=== PATIENT | female | born 1985 | race Caucasian/White ===

== ENCOUNTER → 2020-07-20 09:22 | Outpatient (BNVA) | payer SELFPAY | PROVIDERS: Visit Provider Internal Medicine Cardiovascular Disease | DX: Z76.89 Persons encountering health services in other specified circumstances (principal) ==

== ENCOUNTER → 2020-07-21 | Outpatient (REF) | payer OTHER, SELFPAY ==
--- NOTE | 2020-07-21 | ECG_ITS ---
Hook-up date: 2020-07-20 09:54:00 Duration: 26:34:00 Test Indications: PALPITATIONS Medications: 550079 QRS complexes 1815 Ventricular ectopics which represent 1 % of total QRS comp. 6 Supraventricular ectopics which represent <1 % of total QRS comp. * Paced QRS complexs which represent % of total QRS comp. VENTRICULAR ECTOPY 1247 Isolated 3 Bigeminal Cycles 275 Couplets 6 Runs 18 Beats in Runs 3 Beats LONGEST at 157 BPM at 16:24:04 2020-07-20 3 Beats FASTEST at 267 BPM at 18:23:37 2020-07-20 SUPRAVENTRICULAR ECTOPY 6 Isolated 0 Couplets 0 Runs 0 Beats in Runs * Beats LONGEST at * BPM at :: -- * Beats FASTEST at * BPM at :: -- HEART RATES 56 MIN at 20:01:08 2020-07-20 79 AVG 157 MAX at 14:42:31 2020-07-20 LONGEST RR 1.0720 secs at 06:20:50 2020-07-21 S-T LEVELS Channel 1 - 128 mm at 09:54:00 2020-07-20 - 128 mm at 09:54:00 2020-07-20 Channel 2 - 128 mm at 09:54:00 2020-07-20 - 128 mm at 09:54:00 2020-07-20 Channel 3 - 128 mm at 02:91:31 -- - 128 mm at 02:91:31 Referred By: Jaspal Rosales Overread By:
== END ==
LOC: HO.CARD
PROVIDERS: Visit Provider Internal Medicine Cardiovascular Disease
DX: R00.2 Palpitations (principal)
CPT/HCPCS: 93226

== ENCOUNTER → 2021-01-25 13:19 | Outpatient (BNVA) | payer OTHER, SELFPAY | PROVIDERS: Visit Provider Internal Medicine Cardiovascular Disease | DX: R00.2 Palpitations (principal) | CPT/HCPCS: 93005 ==

== ENCOUNTER 2021-08-07 15:00 | Outpatient (REF) | payer BC, SELFPAY ==
[2021-08-07 15:04] LABS: MANUAL DIFF FLAG NO
[2021-08-07 15:11] LABS: Basophils Percent Auto 0.8 % (0-2); Eosinophils Absolute Auto 0.2 X10*3/uL (0.0-0.4); Hematocrit 37.1 % (37-47); Hemoglobin 12.2 g/dl (12.0-16.0); Imm Gran Abs Auto 0.01 X10*3/uL (0.00-0.03); Imm Gran Pct Auto 0.2 % (0.0-0.4); Lymphocytes Absolute Auto 1.6 X10*3/uL (1.2-4.9); Lymphocytes Percent Auto 31.8 % (20-40); Mean Corpuscular HGB Conc 32.9 g/dl (31.0-35.0); Mean Corpuscular Hemoglobin 29.6 pg (27.0-33.0); Mean Platelet Volume 10.6 fL (9.4-12.3); Monocytes Absolute Auto 0.5 X10*3/uL (0.1-1.2); Monocytes Percent Auto 9.7 % (2-11); Neutrophils Absolute Auto 2.6 X10*3/uL (2.0-8.3); Neutrophils Percent Auto 53.5 % (45-73); Platelet Count 328 X10*3/uL (160-400); Red Blood Count 4.12 X10*6/uL (4.20-5.50); Red Cell Distribution Width 13.5 % (11.0-16.0); White Blood Count 4.9 X10*3/uL (4.8-10.8)
[2021-08-07 15:13] LABS: Appearance Urine CLEAR; Color Urine YELLOW; Glucose Urine UA NEG (NEG); Leukocyte Esterase Urine 1+ (NEG); Nitrite Urine NEG (NEG); PH 6.5 (5.0-8.0); Specific Gravity - Urine <= 1.005 (1.005-1.025); Urine Blood NEG (NEG); Urine Ketones NEG (NEG); Urine Protein NEG (NEG-TRACE)
[2021-08-07 15:37] LABS: RBC Urine 0-2 /HPF (0); Squamous Epithelial Cell Urine TRACE /LPF
[2021-08-07 15:38] LABS: Bacteria Urine 1+ /LPF
[2021-08-07 15:49] LABS: Alanine Aminotransferase 13 U/L (0-31); Albumin Level 4.5 g/dL (3.5-5.0); Alkaline Phosphatase 57 U/L (39-117); Anion Gap 14 (12-20); Aspartate Amino Transferase 16 U/L (5-31); Bilirubin Total 0.5 mg/dL (0.0-1.0); Blood Urea Nitrogen 9 mg/dL (9-16); Calcium 9.4 mg/dL (8.4-10.2); Carbon Dioxide 22 mmol/L (22-29); Chloride 106 mmol/L (96-108); Cholesterol 203 mg/dL; Estimated Glomerular Filt Rate > 60; Glucose Fasting 98 mg/dL (60-99); HDL Cholesterol 73 mg/dL; LDL Cholesterol Calculated 109 mg/dl; Sodium 138 mmol/L (135-145); Total Protein 7.4 g/dL (6.5-8.0); Triglycerides 105 mg/dL
== END 2021-08-07 15:01 | disposition home or self-care (01) ==
LOC: HO.LNP 15:00
PROVIDERS: Visit Provider Internal Medicine
DX: Z00.00 Encounter for general adult medical examination without abnormal findings (principal); F41.9 Anxiety disorder, unspecified; K59.00 Constipation, unspecified; R19.8 Other specified symptoms and signs involving the digestive system and abdomen
CPT/HCPCS: 80053; 80061; 81001; 85025

== ENCOUNTER 2021-09-06 09:18 | Outpatient (REF) | payer BC, SELFPAY ==
--- NOTE | ~2021-09-06 | US_ITS ---
EXAMINATION: US PELVIS CLINICAL INFORMATION: Abdominal fullness COMPARISON: None TECHNIQUE: Ultrasound of the pelvis is performed using both transabdominal and transvaginal transducers along with Doppler. Transvaginal imaging is performed due to inadequate visualization transabdominally. FINDINGS: The uterus is anteverted and measures 9.2 x 2.8 x 4.8 cm in dimension. No focal uterine lesion is seen. Endometrial thickness is upper normal in size measuring 1.6 cm. There is a nabothian cyst in the cervix. There is a small cyst posterior to the uterus measuring 1.1 x 1.1 x 1 cm. This was not seen on prior exam. The ovaries are normal-appearing. The right ovary measures 1.9 x 2.4 x 2.2 cm and the left ovary measures 3.9 x 2.2 x 2.8 cm. There is a small amount of fluid in the pelvis. US/US pelvic and transvaginal IMPRESSION: 1 cm cyst in the pelvis posterior to the uterus. This was not seen on August 2017 exam. Otherwise unremarkable exam.
--- NOTE | ~2021-09-06 | US_ITS ---
EXAMINATION: US ABDOMEN COMPLETE CLINICAL INFORMATION: Abdominal fullness. COMPARISON: Ultrasound abdomen 05/27/2017. TECHNIQUE: Real-time imaging of the abdominal viscera. FINDINGS: PANCREAS: Normal. ABDOMINAL AORTA: The proximal, mid, and distal segments are normal in caliber. INFERIOR VENA CAVA: Visualized portions are normal. LIVER: Normal. The liver is normal in size. The liver contour is normal. Parenchymal echogenicity is normal. No focal hepatic lesion. There is no intrahepatic biliary duct dilatation seen. GALLBLADDER: Normal The gallbladder is physiologically distended without evidence of stones, sludge, polyps, wall thickening or pericholecystic fluid. COMMON BILE DUCT: Normal in caliber measuring 0.3 cm in diameter. RIGHT KIDNEY: Normal No hydronephrosis. No renal calculi or focal parenchymal lesions. The kidney measures 9.2 cm in maximum dimension. LEFT KIDNEY: Normal No hydronephrosis. No renal calculi or focal parenchymal lesions. The kidney measures 9.9 cm in maximum dimension. SPLEEN: Normal. The spleen measures 7.5 cm in maximum dimension. FREE FLUID: None. US/US abdomen complete IMPRESSION: Normal pelvic ultrasound.
== END 2021-09-06 09:19 | disposition home or self-care (01) ==
LOC: HO.US 09:18
PROVIDERS: PCP Internal Medicine; Visit Provider Internal Medicine
DX: K59.00 Constipation, unspecified (principal); R19.8 Other specified symptoms and signs involving the digestive system and abdomen
CPT/HCPCS: 76700; 76830; 76856

== ENCOUNTER 2021-09-07 19:02 | Emergency (ER) | payer BC, SELFPAY ==
[2021-09-07 19:29] VITALS: BP 129/71; PULSE 90; RESP 16; TEMP 36.4; O2SAT 100; BMI 19.5
--- NOTE | 2021-09-07 20:33 | ED.ANIMALBIT ---
HPI - Animal Bite General Chief Complaint: Animal Bite Stated Complaint: tick in your belly button Time Seen by Provider: 09/07/21 20:30 History of Present Illness HPI narrative: 36-year-old female complaining of having a tick in her abdomen. No specific complaint no systemic complaints. Patient is home. No fever no chills Related Data Home Medications Medication Instructions Recorded Confirmed sertraline 25 mg tablet 25 mg PO DAILY 01/25/21 01/25/21 Previous Rx's Medication Instructions Recorded doxycycline hyclate 100 mg capsule 200 mg PO ONCE #2 cap 09/07/21 Allergies Allergy/AdvReac Type Severity Reaction Status Date / Time Erythromycin Allergy Unknown hives Unverified 03/01/20 00:00 Review of Systems Review of Systems: no fever no chills no systemic complaints Yes all other systems are reviewed and are negative [facility] Past Medical History Attestation statement: The following information was validated with the patient. Medical History Palpitation Palpitations Family History Family History (Updated 01/25/21 @ 13:47 by JOSE JUAN Hale) Mother HTN (hypertension) Social History Social History (Updated 01/25/21 @ 13:47 by JOSE JUAN Hale) Alcohol intake: current Patient : No Physical Exam Vital Signs: Vital Signs: Last Vital Signs Temp 97.6 F 09/07/21 19:29 Pulse 90 09/07/21 19:29 Resp 16 09/07/21 19:29 BP 129/71 09/07/21 19:29 Pulse Ox 100 09/07/21 19:29 Body Mass Index 19.5 Appearance: Alert. Oriented X3. No acute distress. Eyes: Pupils equal, round and reactive to light. ENT: Pharynx normal. Neck: Normal inspection. CVS: regular Respiratory: No respiratory distress. Abdomen: Soft and nontender. No rigidity. No distention. good BS x4 Skin: Skin warm and dry. Normal skin color. Normal skin turgor. Extremities: No lower extremity edema. Neurovascular intact to all extremities. No Lacerations. No Rash Neuro: No motor deficit. No sensory deficit. Moving all extermities. No slurred speech positive take imbedded in patient's umbilicus. MDM - Animal Bite MDM Narrative Medical decision making narrative: Take was removed using direct traction. Will give patient 1 dose of doxycycline patient claims she is not she is well-appearing in stable condition with discharge home. Discharge Plan Discharge Clinical Impression: Tick bite Patient Disposition: Home, Self-Care Instructions: Tick Bite (ED) Prescriptions: New doxycycline hyclate 100 mg capsule 200 mg PO ONCE Qty: 2 RF: 0 No Action sertraline 25 mg tablet 25 mg PO DAILY RF: 0 Referrals: Willard Estevez MD [Primary Care Provider] - 2 days
[2021-09-07 20:50] VITALS: BP 102/71; PULSE 83; RESP 18; TEMP 36.7; O2SAT 98
== END 2021-09-07 20:51 | disposition home or self-care (01) ==
LOC: HO.ED 20:35
PROVIDERS: Emergency Provider Emergency Medicine Emergency Medical Services; PCP Internal Medicine
DX: S30.861A Insect bite (nonvenomous) of abdominal wall, initial encounter (principal); W57.XXXA Bitten or stung by nonvenomous insect and other nonvenomous arthropods, initial encounter; Y93.9 Activity, unspecified; Y92.9 Unspecified place or not applicable; Y99.9 Unspecified external cause status
CPT/HCPCS: 99283

== ENCOUNTER → 2022-01-31 14:45 | Outpatient (BNVA) | payer BC, SELFPAY | PROVIDERS: PCP Internal Medicine; Referring Provider Internal Medicine; Visit Provider Internal Medicine Cardiovascular Disease | DX: R00.2 Palpitations (principal) | CPT/HCPCS: 93005 ==

== ENCOUNTER 2022-04-30 13:55 | Outpatient (REF) | payer BC, SELFPAY ==
--- NOTE | ~2022-04-30 | US_ITS ---
EXAMINATION:US pelvic and transvaginal CLINICAL INFORMATION: Reason for Exam ABDOMINAL FULLNESS COMPARISON: Prior ultrasound 2020 LMP: One month FINDINGS: UTERUS: The uterus is anteverted. Size: 8.4 x 3.5 x 5.7 cm cm. Uterine mass: Subserosal uterine mass likely fibroid measures 1.7 x 1.3 x 1.7 cm, slightly enlarged compared to 1.1 cm on prior ultrasound. Cervix: Grossly unremarkable. Endometrium: Hypertrophic endometrium, No ultrasound evidence of endometrial lesion. endometrial thickness measures 1.4 cm ADNEXA: Normal Right ovary: Normal in size. Left ovary: Normal in size. Doppler exam: Normal Doppler flow identified in both ovaries. FREE FLUID: Trace amount of free fluid. OTHER FINDINGS: None US/US pelvic and transvaginal IMPRESSION: Slightly enlarged subserosal uterine mass likely fibroid measure up to 1.7 cm compared to 1.1 cm in prior ultrasound.
== END 2022-04-30 13:56 | disposition home or self-care (01) ==
LOC: HO.US 13:55
PROVIDERS: Visit Provider Internal Medicine
DX: R19.8 Other specified symptoms and signs involving the digestive system and abdomen (principal)
CPT/HCPCS: 76830; 76856

== ENCOUNTER 2023-03-25 16:21 | Outpatient (REF) | payer BC, SELFPAY ==
[2023-03-27 03:49] LABS: A. Phagocytphilium DNA,RT-PCR NOT DETECTED (NOT DETECTED); Babesia Microti DNA, RT-PCR NOT DETECTED (NOT DETECTED); Borrelia Miyamotoi,DNA RT-PCR NOT DETECTED (NOT DETECTED); E.Chaffeensis DNA RT-PCR NOT DETECTED (NOT DETECTED); Lyme(Borrelia ssp)DNA RT-PCR NOT DETECTED (NOT DETECTED)
== END 2023-03-25 16:22 | disposition home or self-care (01) ==
LOC: HO.LAB 16:21
PROVIDERS: PCP Internal Medicine; Visit Provider Internal Medicine
DX: A69.20 Lyme disease, unspecified (principal); Z20.2 Contact with and (suspected) exposure to infections with a predominantly sexual mode of transmission
CPT/HCPCS: 36415; 87798; 87801

== ENCOUNTER 2023-09-10 07:02 | Emergency (ER) | payer BC, SELFPAY ==
[2023-09-10 07:13] VITALS: BP 120/72; PULSE 97; RESP 16; TEMP 36.6; O2SAT 100; BMI 20.4
--- NOTE | 2023-09-10 08:34 | PC.NURSE ---
Patient admits to getting bit by her own dog today while attempting to take away food. Dog is up to date with all vaccinations. Small area noted to thumb. Not bleeding or open at this time. Waiting for provider evaluation.
--- NOTE | 2023-09-10 10:02 | ED.GENADULT ---
HPI - General Adult General Chief complaint: Animal Bite Stated complaint: Poss Rabies Exposure Bit by Dog 09/08/23 Time Seen by Provider: 09/10/23 09:26 Source: patient Mode of arrival: ambulatory Limitations: no limitations History of Present Illness HPI narrative: 28-year-old female presents to the ED for left thumb bite by her dog while trying give him chicken was vaccinated for rabies. Patient denies any swelling, redness, pus discharge, foul odor, or stiffness from left thumb. Patient came to ED to be evaluated because her dog went near a Alexis couple of days ago so she came to the ED to see if she should be treated for rabies. Patient denies once again Alexis biting her dog, the alexis was . Her dog does not have any bites on her body. Also her dog did not bite into the Alexis. Patient states her dog is acting normally Related Data Home Medications Medication Instructions Recorded Confirmed sertraline 25 mg tablet 25 mg PO DAILY 01/25/21 01/31/22 Previous Rx's Medication Instructions Recorded amoxicillin 400 mg/5 mL oral 500 mg (6.25 mL) PO BID 7 days 09/10/23 suspension #87.5 mL Allergies Allergy/AdvReac Type Severity Reaction Status Date / Time erythromycin base Allergy Unknown Hives Verified 09/10/23 07:13 Review of Systems Review of Systems: left thumb dog bite Yes all other systems are reviewed and are negative [facility] Past Medical History Medical History (Updated 09/10/23 @ 10:19 by SARAH Doan) Palpitations Palpitation Surgical History (Updated 01/31/22 @ 14:57 by JOSE JUAN Hale) No pertinent past surgical history Family History Family History (Updated 01/31/22 @ 14:57 by JOSE JUAN Hale) Mother HTN (hypertension) Father No problems noted. Social History (Updated 01/31/22 @ 14:57 by JOSE JUAN Hale) Alcohol intake: current Alcohol intake frequency: holidays/special occasions only Patient Tobacco Use Status: Never used Tobacco Advance Directives: No Advance Directives Information Provided: No Physical Exam ED Vital Signs: Vital Signs - 24 hr 09/10/23 07:13 Temperature 97.9 F Pulse Rate 97 Respiratory Rate 16 Blood Pressure 120/72 Pulse Oximetry 100 Oxygen Delivery Method Room Air BMI result Body Mass Index 20.4 Const General: cooperative, healthy appearing, comfortable, no acute distress, well developed, alert, awake and Physically active Orientation/consciousness: oriented to person, oriented to place, oriented to time and patient oriented x3 [facility] Head: Yes normal to inspection, Yes No palpable skull fracture present, Yes normocephalic and Yes atraumatic Eyes General: appearance normal, both eyes and all related structures Neck Neck: Yes normal visual inspection, Yes full ROM, Yes no lymphadenopathy, Yes no meningeal signs, Yes trachea midline, Yes supple, No anterior neck swelling and No tender Chest Chest palpation & inspection: normal inspection of the chest and normal palpation of entire chest wall Resp Effort & Inspection: normal respiratory effort and able to speak in complete sentences Auscultation: clear to auscultation bilaterally Cardio Jugular venous distension: no JVD Heart sounds: S1 normal heart sound present and S2 normal heart sound present GI Inspection: Yes normal to inspection and No abdominal wall ecchymosis Palpation (GI): Soft to palpation, not firm, nontender, no guarding and not rigid General: No CVA tenderness and Yes no CVA tenderness Back/Spine/Pelvis Back: no CVA tenderness, No CVA tenderness and No back tenderness Skin General skin exam: no rashes or lesions noted, elasticity normal and turgor normal Neuro General: oriented to person, oriented to place, oriented to time, patient oriented x3, gait normal, tone normal, moves all extremities, Normal light touch and pain sensation, no meningeal signs, no focal motor deficits, CN's II-XI intact bilaterally and normal sensation to monofilament Extrem Hand/finger images: 1. Very superficial abrasion. Negative for erythema, pus discharge, foul odor, tenderness, or stiffness. Capillary refills intact. Whole extremity including some motor/ neuro/vascular exam intact Psych Appearance: grossly normal, well kempt and not disheveled Medications Administered Discontinued Medications Generic Name Dose Route Start Last Admin Trade Name Freq PRN Reason Stop Dose Admin Diphtheria/Tetanus/Acell Pertussis 0.5 ml 09/10/23 10:01 09/10/23 10:22 Diphth,Pertus(Acell),Tet Adult 0.5 Ml Syringe IM 09/10/23 10:02 0.5 ml .ONCE ONE Administration Medical Decision Making Medical Decision Making MDM Narrative: 38-year-old female presents to the ED for left thumb bite from her dog who is vaccinated for rabies and up-to-date. she states her dog biting her was not provoked. She states she was playing with her dog and handed him a chicken and by accident his teeth scraped her left thumb. She came to the ED to be evaluated due to her dog couple of days going near a alexis. Patient denies her dog being bit by the Alexis. Patient states her dog has no dog bites on her body. Also she denies her dog eating the flash of blood that Alexis. She she states her dog has been acting normally. Patient denies any signs of infection to her thumb. Patient will be given Tdap and discharged with Augmentin. As per up-to-date domestic animals that are vaccinated it is rare for them receive or contract rabies. Up today also states domestic animals with non bite exposure to wild animals is minimal risk and no immediate rabies vaccination needed for pet director channel and animal, but animal should be observed and tested for couple of days. This was informed to patient and she will observe her pet dog and follow up with her veterinary in for testing. Patient cant not take pills so she reqeusted liquid antitiobitics. Patient given liquid amoxiciilin Differential Diagnosis Differential Diagnoses: The differential diagnosis associated with the presentation includes ( Dog bite, cellulitis, tenosynovitis, necrotizing fasciitis.) Admission/Observation Consideration of admission/observation: Escalation of care including admission/observation considered External Record Review External record reviewed: Other ( Prior visits) Prescription Management I considered prescription management with: Antibiotic Discharge Plan Discharge Clinical Impression: Dog bite Patient Disposition: Home, Self-Care Instructions: Animal Bite (ED) Additional Instructions: please follow-up with your primary care provider. Recommend observing your dog and looking for signs of rabies for at least 10 days and follow up with dog's Vet's. signs of rabies foaming at the mouth, aggressive, unprovoke attacks, self mutlilation, seizure, paralysis, or any other abnormal behavior. you should return to the ED immediately for any redness, swelling, pus discharge, stiffness of thumb, fever, chills, bluish discoloration, fear of water, seizure, altered mental status, drooling, foaming at the mouth, or any other concerning symptoms. Prescriptions: New amoxicillin 400 mg/5 mL suspension for reconstitution 500 mg PO BID 7 Days Qty: 87.5 0RF No Action sertraline 25 mg tablet 25 mg PO DAILY Interventions: ED Discharge Assessment Last Done: 09/10/23 10:30 Discharge Date/Time: 09/10/23 10:30 Print Language: Eritrean
[2023-09-10] MEDS: Diphth,Pertus(ACell),Tet Adult 0.5 ML SYRINGE IM (10:22)
== END 2023-09-10 10:30 | disposition home or self-care (01) ==
PROVIDERS: Emergency Provider Emergency Medicine; PCP Internal Medicine
DX: S61.052A Open bite of left thumb without damage to nail, initial encounter (principal); W54.0XXA Bitten by dog, initial encounter; Y93.89 Activity, other specified; Y92.9 Unspecified place or not applicable; Y99.9 Unspecified external cause status; Z23 Encounter for immunization
CPT/HCPCS: 90471; 90715; 99282; 99284

== ENCOUNTER 2024-10-29 11:15 | Outpatient (REF) | payer BC, SELFPAY ==
[2024-10-29 11:17] LABS: MANUAL DIFF FLAG NO
--- OUTSIDE RECORDS SUMMARY | 2024-10-29 11:21 | XMS_ITS ---
Author Organization Willard Estevez MD Address [address] [place] [phone] Care Team Providers Care Cafeteria Team Leader Name Role Phone Willard Estevez Primary Care Provider [phone] REASON FOR VISIT yearly fasting labs Encounters Encounter Location Date Provider Diagnosis Willard Estevez MD [address] [place], [place] [phone] 10/29/2024 Willard Estevez Blood tests for routine general physical examination Z00.00 ASSESSMENTS Encounter Date Diagnosis Assessment Notes Treatment Notes Treatment Clinical Notes 10/29/2024 Blood tests for routine general physical examination (ICD-10 - Z00.00) PLAN OF TREATMENT Pending Test Test Name Order Date Complete Blood Count Auto Diff 5 Comprehensive [place]. Panel Fast 5 Lipid Panel 10/29/2024 UA ClnCatch+Micro w/rflx Cult 10/29/2024 Next Appt Details Provider Name:Willard Scott ier, 11/16/2024 01:30:00 PM, [address], [address], [place], [place], [phone],
--- OUTSIDE RECORDS SUMMARY | 2024-10-29 11:21 | XMS_ITS ---
Author Organization Willard Estevez MD Address [address] [place] [address] [place] [phone] Care Team Providers Care Fuel Efficient Automobile Designer Name Role Phone Willard Estevez Primary Care Provider REASON FOR VISIT refill MEDICATIONS Medication SIG (Take, Route, Fr equency, Duration) Notes Start Date End Date Status Sertraline HCl 25 MG TAKE ONE TABLET BY MOUTH EVERY DAY Orally Once a day for 90 days Active Encounters Encounter Location Date Provider Diagnosis Willard Estevez MD [address] [place] [address] [place] [phone] 04/06/2024 Willard Estevez PLAN OF TREATMENT Medication Medication Name Sig Start Date Stop Date Notes Sertraline HCl 25 MG TAKE ONE TABLET BY MOUTH EVERY DAY Orally Once a day for 90 days Next Appt Details Provider Name:Willard marcano, 11/16/2024 01:30:00 PM, [address] [place] [address], Suite [facility], [place], [place], [phone],
--- OUTSIDE RECORDS SUMMARY | 2024-10-29 11:22 | XMS_ITS ---
Author Organization Willard Estevez MD Address [address] [place], [place] [phone] Care Team Providers Care Line Haul Driver Name Role Phone Willard Estevez Primary Care Provider [phone] REASON FOR VISIT refill Encounters Encounter Location Date Provider Diagnosis Willard Estevez MD [address] [facility] [address] [place], [place] [phone] 11/14/2023 Willard Estevez PLAN OF TREATMENT Next Appt Details Provider Name:Willard marcano, 11/16/2024 01:30:00 PM, [address] [facility], [address], [place], [place], [phone],
--- OUTSIDE RECORDS SUMMARY | 2024-10-29 11:22 | XMS_ITS | Patient Health Record ---
Author Organization Willard Estevez MD Address [address] [place], [place] [phone] Care Team Providers Care Mechanic General Operational Test Name Role Phone Willard Estevez Primary Care Provider ALLERGIES Allergen (clinical drug ingredient) Drug/Non Drug Allergy documented on EMR Reaction Allergy Type Onset Date Status erythromycin erythromycin (uncoded) hives Allergy Active REASON FOR REFERRAL No Information MEDICATIONS Medication SIG (Take, Route, Frequency, Duration) Notes Start Date End Date Status Doxycycline Hyclate 100 MG 1 capsule Orally Twice a day for 14 days 03/25/2023 Not-Taking Sertraline HCl 25 MG TAKE ONE TABLET BY MOUTH EVERY DAY Orally Once a day for 90 days Active IMMUNIZATIONS Vaccine Route Administration Date Status Comme nts Fluarix Quadrivalent IM Intramuscular 08/07/2021 Curry grayson SARS-COV-2 Moderna Unknown 08/17/2021 Administered Covid Vaccine Unknown 01/29/2021 Administered SARS-COV-2 Pfizer Unknown 05/19/2021 Administered Fluarix Quadrivalent IM Intramuscular 07/01/2023 Curry grayson SOCIAL HISTORY Tobacco Use: Social History Observation Description Date Details (start date - stop date) Never Smoker NA - NA Sex Assigned At : Social History Observation Description Sex Assigned At Unknown Tobacco Use/Smoking Question Answer Notes Patient is a nonsmoker Additional Findings: Tobacco Non-User Cu rrent non-smoker, currently using no form of tobacco Alcohol Screen Question Answer Notes Did you have a drink contain ing alcohol in the past year? Yes How often did you have a dri nk containing alcohol in the past year? Monthly or less (1 point) How many drinks did you have on a typical day when you were drinking in the past year? 1 or 2 drinks (0 point) How often did you have 6 or more drinks on one occasion in the past year? Never (0 point) Points 1 Interpretation Negative PROBLEMS Problem Type ICD Code Onset Dates Problem Status W/U Status Risk SNOMED Code Notes Problem Anxiety (F41.9) Active confirmed 129028 02 Problem Constipation, unspecified constipation type (K59.00) Active confirmed 43691860 Problem Slow transit constipation (K59.01) Active confirmed 39254977 Encounters Encounter Location Date Provider Diagnosis Willard Estevez MD [address] [place] [phone] 10/29/2024 Willard Estevez Blood tests for routine general physical examination Z00.00 Willard Estevez MD [address] [place] [address] [place] [phone] 11/14/2023 Willard Estevez MD [address] [place] [phone] 04/06/2024 Willard Estevez ASSESSMENTS Encounter Date Diagnosis Assessment Notes Treatment Notes Treatment Clinical Notes 10/29/2024 Blood tests for routine general physical examination (ICD-10 - Z00.00) PLAN OF TREATMENT Pending Test Test Name Order Date Complete Blood Count Auto Diff 5 Comprehensive [place]. Panel Fast 5 Lipid Panel 10/29/2024 US abdomen complete 08/07/2021 US pelvic complete 08/07/2021 US pelvic complete 09/25/2021 UA ClnCatch+Micro w/rflx Cult 10/29/2024 US pelvic and transvaginal 02/21/2022 Next Appt Details Provider Name:Willard Scott ier, 11/16/2024 01:30:00 PM, [address] [place] [address] Drive, Suite [facility], [place], [place], [phone], Insurance Providers Payer Name Payer Address Payer Phone Subscriber Number Group Number Insured Name Patient Relationship to Insured Coverage Start Date Coverage End Date [employer] [address] [place], [place] [id number] [phone] [id number] Alda Rivera Self - patient is the insured
[2024-10-29 11:33] LABS: Appearance Urine Clear; Color Urine Yellow; Glucose Urine UA Negative (Negative); Leukocyte Esterase Urine Negative (Negative); Nitrite Urine Negative (Negative); UMIC TRIGGER UACC YES; Urine Blood Moderate (2+) (Negative); Urine Ketones Negative (Negative); Urine Protein Negative (Neg-Trace)
[2024-10-29 11:48] LABS: Basophils Absolute Auto 0.1 X10*3/uL (0.0-0.2); Basophils Percent Auto 1.2 % (0-2); Eosinophils Absolute Auto 0.3 X10*3/uL (0.0-0.4); Eosinophils Percent Auto 6.3 % (0-4); Hematocrit 39.1 % (37.0-47.0); Hemoglobin 12.7 g/dl (12.0-16.0); Imm Gran Abs Auto 0.01 X10*3/uL (0.00-0.03); Imm Gran Pct Auto 0.2 % (0.0-0.4); Lymphocytes Absolute Auto 1.9 X10*3/uL (1.2-4.9); Lymphocytes Percent Auto 39.3 % (20-40); Mean Corpuscular HGB Conc 32.5 g/dl (31.0-35.0); Mean Corpuscular Hemoglobin 29.4 pg (27.0-33.0); Mean Corpuscular Volume 90.5 fL (80.0-98.0); Mean Platelet Volume 10.4 fL (9.4-12.3); Monocytes Absolute Auto 0.6 X10*3/uL (0.1-1.2); Monocytes Percent Auto 11.5 % (2-11); Neutrophils Absolute Auto 2.1 x10*3/uL (2.0-8.3); Neutrophils Percent Auto 41.5 % (45-73); Platelet Count 376 X10*3/uL (160-400); Red Blood Count 4.32 X10*6/uL (4.20-5.50); Red Cell Distribution Width 13.8 % (11.0-16.0); White Blood Count 4.9 X10*3/uL (4.8-10.8)
[2024-10-29 12:23] LABS: Bacteria Urine None Seen (None Seen); Hyaline Casts Urine 0-2 /LPF (0-2); RBC Urine 0-2 /HPF (0-2); Squamous Epithelial Cell Urine 0-2 /HPF (0-2); WBC Urine 0-5 /HPF (0-5)
[2024-10-29 12:46] LABS: Alanine Aminotransferase 14 U/L (0-31); Albumin Level 4.3 g/dL (3.5-5.0); Alkaline Phosphatase 53 U/L (39-117); Anion Gap 11 (12-20); Aspartate Amino Transferase 17 U/L (5-31); Bilirubin Total 0.6 mg/dL (0.0-1.0); Blood Urea Nitrogen 10 mg/dL (9-16); Calcium 9.4 mg/dL (8.4-10.2); Carbon Dioxide 26 mmol/L (22-29); Chloride 108 mmol/L (96-108); Cholesterol 211 mg/dL (<200); Estimated Glomerular Filt Rate > 60; Glucose Fasting 86 mg/dL (60-99); HDL Cholesterol 72 mg/dL (>40); LDL Cholesterol Calculated 120 mg/dL (<100); Potassium 4.1 mmol/L (3.3-5.1); Sodium 141 mmol/L (135-145); Total Protein 7.3 g/dL (6.5-8.0); Triglycerides 97 mg/dL (<150)
== END 2024-10-29 11:16 | disposition home or self-care (01) ==
LOC: HO.LNP 11:15
PROVIDERS: Visit Provider Internal Medicine
DX: Z00.00 Encounter for general adult medical examination without abnormal findings (principal)
CPT/HCPCS: 80053; 80061; 81001; 85025

== ENCOUNTER 2024-11-18 12:07 | Outpatient (REF) | payer BC, SELFPAY ==
[2024-11-18 12:28] LABS: Appearance Urine Clear; Color Urine Yellow; Glucose Urine UA Negative (Negative); Leukocyte Esterase Urine Negative (Negative); Nitrite Urine Negative (Negative); Specific Gravity - Urine 1.015 (1.005-1.025); Urine Blood Negative (Negative); Urine Ketones Negative (Negative); Urine Protein Negative (Neg-Trace)
[2024-11-18 12:34] LABS: Bacteria Urine Trace (None Seen); Hyaline Casts Urine 0-2 /LPF (0-2); RBC Urine 0-2 /HPF (0-2); WBC Urine 0-5 /HPF (0-5)
--- OUTSIDE RECORDS SUMMARY | 2024-11-18 15:59 | XMS_ITS ---
Author Organization Willard Estevez MD Address [address] [place], [place] [id number] Care Team Providers Care Online Services Manager Name Role Phone Willard Estevez Primary Care Provider [phone] Results Component Value Reference Range Notes UA ClnCatch+Micro w/rflx Cul t (Not yet reviewed by provider) Interpretation:CBACK 11/16/24 Performing Lab:[facility], [address] [place] [phone] Notes/Report: Urine, Clean Catch Color Urine Yellow Appearance Urine Clear PH 7.0 5.0-9.0 Glucose Urine UA Negative Negative mg/dL Urine Blood Moderate (2+) Negative Specific [place] - Urine 1.020 1.005-1.025 Urine Protein Negative Neg-Trace mg/dL Urine Ketones Negative Negative mg/dL Nitrite Urine Negative Negative Leukocyte Esterase Urine Negative Negative RBC Urine 0-2 0-2 /HPF WBC Urine 0-5 0-5 /HPF Squamous Epithelial Cell Urine 0-2 0-2 /HPF Bacteria Urine None Seen None Seen Hyaline Casts Urine 0-2 0-2 /LPF Complete Blood Count Auto Di ff Reviewed date:10/29/2024 05:16:08 PM Interpretation: Performing Lab:[facility], [address] [place] [phone] Notes/Report: White Blood Count 4.9 4.8-10.8 X10*3/uL Red Blood Count 4.32 4.20-5.50 X10*6/uL Hemoglobin 12.7 12.0-16.0 g/dl Hematocrit 39.1 37.0-47.0 % Mean Corpuscular Volume 90.5 80.0-98.0 fL Mean Corpuscular Hemoglobin 29.4 27.0-33.0 pg Mean Corpuscular HGB Conc 32.5 31.0-35.0 g/dl Red Cell Distribution Width 13.8 11.0-16.0 % Platelet Count 376 160-400 X10*3/uL Mean Platelet Volume 10.4 9.4-12.3 fL Neutrophils Percent Auto 41.5 45-73 % Imm Gran Pct Auto 0.2 0.0-0.4 % Lymphocytes Percent Auto 39.3 20-40 % Monocytes Percent Auto 11.5 2-11 % Eosinophils Percent Auto 6.3 0-4 % Basophils Percent Auto 1.2 0-2 % NRBC Pct Auto 0.0 0.0-0.2 /100WBC Neutrophils Absolute Auto 2.1 2.0-8.3 x10*3/u L Imm Gran Abs Auto 0.01 0.00-0.03 X10*3/uL Lymphocytes Absolute Auto 1.9 1.2-4.9 X10*3/u L Monocytes Absolute Auto 0.6 0.1-1.2 X10*3/uL Eosinophils Absolute Auto 0.3 0.0-0.4 X10*3/u L Basophils Absolute Auto 0.1 0.0-0.2 X10*3/uL NRBC Abs Auto 0.000 0.0-0.012 X10*3/uL Comprehensive [place]. Panel Fa st Reviewed date:10/29/2024 05:27:17 PM Interpretation: Performing Lab:[facility], [address] [place] [phone] Notes/Report: Sodium 141 135-145 mmol/L Potassium 4.1 3.3-5.1 mmol/L Chloride 108 96-108 mmol/L Carbon Dioxide 26 22-29 mmol/L Anion Gap 11 12-20 Blood Urea Nitrogen 10 9-16 mg/dL Creatinine 0.78 0.5-1.4 mg/dL Estimated Glomerular Filt Rate > 60 Chronic Kidney Disease: Estimated GFR < 60 mL/min/1.73m2 Severe Kidney Disease: Estimated GFR < 15 mL/min/1.73m2 Glucose Fasting 86 60-99 mg/dL Calcium 9.4 8.4-10.2 mg/dL Bilirubin Total 0.6 0.0-1.0 mg/dL Aspartate Amino Transferase 17 5-31 U/L Alanine Aminotransferase 14 0-31 U/L Total Protein 7.3 6.5-8.0 g/dL Albumin Level 4.3 3.5-5.0 g/dL Alkaline Phosphatase 53 39-117 U/L Lipid Panel Reviewed date:10/29/2024 05:11:05 PM Interpretation: Performing Lab:[facility], [address] [place] [phone] Notes/Report: Triglycerides 97 <150 mg/dL Desirable Triglyceride: less than 150 mg/dL Borderline High Triglyceride 150-199 mg/dL High Triglyceride: 200-499 mg/dL Very High Triglyceride: greater than or equal to 5OO mg/dL Cholesterol 211 <200 mg/dL Desirable Cholesterol: less than 200 mg/dL Borderline High Cholesterol: 200-239 mg/dL High Cholesterol: greater than 239 mg/dL LDL Cholesterol Calculated 120 <100 mg/dL Desirable LDL: less than 100 mg/dL Near Optimal/Above Optimal LDL: 110-129 mg/dL Borderline High LDL: 130-159 mg/dL High LDL: 160-189 mg/dL Very High LDL: greater than or equal to 190 mg/dL HDL Cholesterol 72 >40 mg/dL Desirable HDL: greater than 40 mg/dL Note: This HDL assay may give artificially low results in patients with liver disease. REASON FOR VISIT yearly fasting labs Encounters Encounter Location Date Provider Diagnosis Willard Estevez MD [address] [place] [address] [place] [phone] 10/29/2024 Willard Estevez Blood tests for routine general physical examination Z00.00 Assessments Encounter Date Diagnosis (ICD Code) Assessment Notes Treatment Notes Treatment Clinical Notes Section Notes 10/29/2024 Blood tests for routine general physical examination (ICD-10 - Z00.00) Plan Of Treatment Pending Test Test Name Order Date UA ClnCatch+Micro w/rflx Cult 10/29/2024 Next Appt Details Provider Name:Willard marcano, 11/11/2025 08:00:00 AM, [address] [facility], [address], [place], [place], [phone], Provider Name:Willard marcano, 11/18/2025 02:30:00 PM, [address] [place] [address], [address], [place], [phone], Progress Notes * Alda DICKSON ADOB: (39 yo F)Acc No.[id number]:10/29/2024 Progress Note Patient:?Alda DICKSON Provider:?Willard Estevez MD :1985???Age:39 Y???Sex:Female D ate:10/29/2024 Address:[address] [place], [place] [phone] Subjective: * Chief Complaints: * ???1. Yearly fasting labs. * Medical History:? Objective: * Vitals:? Assessment: * Assessment: 1.?Blood tests for routine g eneral physical examination - Z00.00 (Primary)??? Plan: * Treatment: * Procedure Codes:?31838 VENIP UNCT, ROUTINE* * * The named appointment provid er may or may not be the originator of this progress note, and it is not deemed complete until electronically signed by the appointment provider. Sign off status: Pending * Provider:?Willard Estevez MD Date:?0 10/29/2024 Generated for Mateusz laughlin/Lurdes/Brianitting on:?11/18/2024 03:59 PM EST
--- OUTSIDE RECORDS SUMMARY | 2024-11-18 16:00 | XMS_ITS | Patient Health Record ---
Author Organization Willard Estevez MD Address [address] [place], [place] [phone] Care Team Providers Care Cold Roller Name Role Phone Willard Estevez Primary Care Provider [phone] Allergies Allergen (clinical drug ingredient) Drug/Non Drug Allergy documented on EMR Reaction Allergy Type Onset Date Status erythromycin erythromycin (uncoded) hives Allergy Active Results Component Value Reference Range Notes UA ClnCatch+Micro w/rflx Cul t (Not yet reviewed by provider) Interpretation:CBACK 11/16/24 Performing Lab:[facility], [address] [place] [phone] Notes/Report: Urine, Clean Catch Color Urine Yellow Appearance Urine Clear PH 7.0 5.0-9.0 Glucose Urine UA Negative Negative mg/dL Urine Blood Moderate (2+) Negative Specific [place] - Urine 1.020 1.005-1.025 Urine Protein Negative [...] ff Reviewed date:10/29/2024 05:16:08 PM Interpretation: Performing Lab:[facility], [address] [place] [phone] Notes/Report: White Blood Count 4.9 4.8-10.8 X10*3/uL [...] NRBC Abs Auto 0.000 0.0-0.012 X10*3/uL Comprehensive [place]. Panel Fa st Reviewed date:10/29/2024 05:27:17 PM Interpretation: Performing Lab:[facility], [address] [place] [phone] Notes/Report: Sodium 141 135-145 mmol/L Potassium 4.1 [...] Panel Reviewed date:10/29/2024 05:11:05 PM Interpretation: Performing Lab:[address] [phone] Notes/Report: Triglycerides 97 <150 mg/dL Desirable Triglyceride: [...] low results in patients with liver disease. UA ClnCatch+Micro w/rflx Cul t (Not yet reviewed by provider) Interpretation: Performing Lab:[address] [phone] Notes/Report: [id number] Urine, Clean Catch Color Urine Yellow Appearance Urine Clear PH 6.0 5.0-9.0 Glucose Urine UA Negative Negative mg/dL Urine Blood Negative Negative Specific [place] - Urine 1.015 1.005-1.025 Urine Protein Negative Neg-Trace mg/dL Urine Ketones Negative Negative mg/dL Nitrite Urine Negative Negative Leukocyte Esterase Urine Negative Negative RBC Urine 0-2 0-2 /HPF WBC Urine 0-5 0-5 /HPF Squamous Epithelial Cell Urine 3-5 0-2 /HPF Bacteria Urine Trace None Seen Hyaline Casts Urine 0-2 0-2 /LPF Reason For Referral No Information Medications Medication SIG (Take, Route, Frequency, Duration) Notes Start Date End Date Status Sertraline HCl 25 MG TAKE ONE TABLET BY MOUTH EVERY DAY Orally Once a day for 90 days Active Doxycycline Hyclate 100 MG 1 capsule Orally Twice a day for 14 days 03/25/2023 Not-Taking Immunizations Vaccine Route Administration Date Status Commfranc nts Fluarix Quadrivalent IM Intramuscular 08/07/2021 Adminfeliciano grayson SARS-COV-2 Moderna Unknown 08/17/2021 Administered Covid Vaccine Unknown 01/29/2021 Administered SARS-COV-2 Pfizer Unknown 05/19/2021 Administered Fluarix Quadrivalent IM Intramuscular 07/01/2023 Adminfeliciano grayson Social History Tobacco Use: Social History Observation Description Date Details (start date - stop date) Never Smoker NA - NA Tobacco Use/Smoking Question Answer Notes Patient is [...] Never (0 point) Points 1 Interpretation Negative Problems Problem Type SNOMED Code ICD Code Onset Dates Problem Status W/U Status Risk Notes Problem 80896504 Anxiety (F41.9) Active confirmed Problem 70676980 Slow transit constipation (K59.01) Active confirmed Problem 42097202 Constipation, unspecified constipation type (K59.00) Active confirmed Vital Signs Blood pressure diastolic 62 mm Hg 11/16/2024 osman ght is down 2 pounds since 07-01-23 Height 64 in 11/16/2024 weight is down 2 pounds since 07-01-23 Blood pressure systolic 114 mm Hg 11/16/2024 weig ht is down 2 pounds since 07-01-23 Weight 112 lbs 11/16/2024 weight is down 2 pounds since 07-01-23 BMI 19.22 kg/m2 11/16/2024 weight is down 2 pounds since 07-01-23 Encounters Encounter Location Date Provider Diagnosis Willard Estevez MD [address] [place] [phone] 11/16/2024 Willard Estevez Anxiety F41.9 ; Annual physical exam Z00.00 ; Microscopic hematuria R31.29 and Depression screening Z13.31 Willard Estevez MD [address] [place] [address] [address] [place] [id number] 10/29/2024 Willard Estevez Blood tests for routine general physical examination Z00.00 Willard Estevez MD [address] [place] [id number] 11/18/2024 Willard Estevez Hematuria R31.9 Willard Estevez MD [address] [place] [phone] 04/06/2024 Willard Estevez Assessments Encounter Date Diagnosis (ICD Code) Assessment Notes Treatment Notes Treatment Clinical Notes Section Notes 11/16/2024 Anxiety (ICD-10 - F41.9) doing well., will cpntinue current regiment 11/16/2024 Annual physical exam (ICD-10 - Z00.00) labs reviewed and discussed with patient 10/29/2024 Blood tests for routine general physical examination (ICD-10 - Z00.00) 11/18/2024 Hematuria (ICD-10 - R31.9) 11/16/2024 Microscopic hematuria (ICD-10 - R31.29) was having her period, will continue to monitor 11/16/2024 Depression screening (ICD-10 - Z13.31) negative screen Plan Of Treatment Pending Test Test Name Order Date Urinalysis and Microscopic 11/16/2024 US abdomen complete 08/07/2021 US pelvic complete 08/07/2021 US pelvic complete 09/25/2021 UA ClnCatch+Micro w/rflx Cult 10/29/2024 UA ClnCatch+Micro w/rflx Cult 11/18/2024 US pelvic and transvaginal 02/21/2022 Next Appt Details Provider Name:Willard marcano, 11/11/2025 08:00:00 AM, [address] [facility], [address] [facility], [place], [place], [phone], Provider Name:Willard marcano, 11/18/2025 02:30:00 PM, [address] [facility] [address], [address], [place], [place], [phone], Insurance Providers Payer Name Payer Address Payer Phone Subscriber Number Group Number Insured Name Patient Relationship to Insured Coverage Start Date Coverage End Date [employer] [facility] [address] [place], [place] [phone] [id number] Alda Rivera Self - patient is the insured
--- OUTSIDE RECORDS SUMMARY | 2024-11-18 16:00 | XMS_ITS ---
Author Organization Willard Estevez MD Address [address] [place] [phone] Care Team Providers Care Carbon Paper Coating Machine Setter Name Role Phone Willard Estevez Primary Care Provider Results Component Value Reference Range Notes UA ClnCatch+Micro w/rflx Cul t (Not yet reviewed by provider) Interpretation: Performing Lab:[facility], [address] [place] [phone] Notes/Report: [id number] Urine, Clean Catch Color Urine Yellow Appearance Urine Clear PH 6.0 5.0-9.0 Glucose Urine UA Negative Negative mg/dL Urine Blood Negative Negative Specific [place] - Urine 1.015 1.005-1.025 Urine Protein Negative Neg-Trace mg/dL Urine Ketones Negative Negative mg/dL Nitrite Urine Negative Negative Leukocyte Esterase Urine Negative Negative RBC Urine 0-2 0-2 /HPF WBC Urine 0-5 0-5 /HPF Squamous Epithelial Cell Urine 3-5 0-2 /HPF Bacteria Urine Trace None Seen Hyaline Casts Urine 0-2 0-2 /LPF REASON FOR VISIT u/a Encounters Encounter Location Date Provider Diagnosis Willard Estevez MD [address] [facility] [address] [place] [phone] 11/18/2024 Willard Estevez Hematuria R31.9 Assessments Encounter Date Diagnosis (ICD Code) Assessment Notes Treatment Notes Treatment Clinical Notes Section Notes 11/18/2024 Hematuria (ICD-10 - R31.9) Plan Of Treatment Pending Test Test Name Order Date UA ClnCatch+Micro w/rflx Cult 11/18/2024 Next Appt Details Provider Name:Willard dowellr, 11/11/2025 08:00:00 AM, [address], [address], [place], [phone], Provider Name:Willard Scott ier, 11/18/2025 02:30:00 PM, [address], [address], [place], [phone], Progress Notes * Alda DICKSON ADOB: (39 yo F)Acc No.[id number]:11/18/2024 Progress Note Patient:?Alda DICKSON Provider:?Willard Estevez MD :1985???Age:39 Y???Sex:Female D ate:11/18/2024 Address:[address] [place], [place] [phone] Subjective: * Chief Complaints: * ???1. U/a. * Medical History:? Objective: * Vitals:? Assessment: * Assessment: 1.?Hematuria - R31.9 (Primar y)??? Plan: * Treatment: * * The named appointment provid er may or may not be the originator of this progress note, and it is not deemed complete until electronically signed by the appointment provider. Sign off status: Pending * Provider:?Willard Estevez MD Date:?0 11/18/2024 Generated for Mateusz laughlin/Lurdes/eTlolitasmitting on:?11/18/2024 03:59 PM EST
--- OUTSIDE RECORDS SUMMARY | 2024-11-18 16:01 | XMS_ITS ---
Author Organization Willard Estevez MD Address [address] [place], [place] [id number] Care Team Providers Care Fiction And Nonfiction Prose Writer Name Role Phone Willard Estevez Primary Care Provider Allergies Allergen (clinical drug ingredient) Drug/Non Drug Allergy documented on EMR Reaction Allergy Type Onset Date Status erythromycin erythromycin (uncoded) hives Allergy Active REASON FOR VISIT annual visit, CBACK URINE Medications Medication SIG (Take, Route, Frequency, Duration) Notes Start Date End Date Status Sertraline HCl 25 MG TAKE ONE TABLET BY MOUTH EVERY DAY Orally Once a day for 90 days Active Doxycycline Hyclate 100 MG 1 capsule Orally Twice a day for 14 days 03/25/2023 Not-Taking Social History Tobacco Use: Social History Observation [...] Never (0 point) Points 1 Interpretation Negative Vital Signs Blood pressure systolic 114 mm Hg 11/16/19 25 Blood pressure diastolic 62 mm Hg 025 Height 64 in 11/16/2024 Weight 112 lbs 11/16/2024 BMI 19.22 kg/m2 11/16/2024 weight is down 2 pounds [facility] 07-01-23 Encounters Encounter Location Date Provider Diagnosis Willard Estevez MD [address] [place] [phone] 11/16/2024 Willard Estevez Anxiety F41.9 ; Annual physical exam Z00.00 ; Microscopic hematuria R31.29 and Depression screening Z13.31 Assessments Encounter Date Diagnosis (ICD Code) Assessment Notes Treatment Notes Treatment Clinical Notes Section Notes 11/16/2024 Anxiety (ICD-10 - F41.9) doing well., will cpntinue current regiment 11/16/2024 Annual physical exam (ICD-10 - Z00.00) labs reviewed and discussed with patient 11/16/2024 Microscopic hematuria (ICD-10 - R31.29) was having her period, will continue to monitor 11/16/2024 Depression screening (ICD-10 - Z13.31) negative screen Plan Of Treatment Treatment Notes Assessment Notes Anxiety doing well., will cp ntinue current regiment Annual physical exam labs reviewed and d iscussed with patient Microscopic hematuria was having her per iod, will continue to monitor Depression screening negative screen Pending Test Test Name Order Date Urinalysis and Microscopic 11/16/2024 Next Appt Details Follow Up: 1 Year, Reason: Provider Name:Willard marcano, 11/11/2025 08:00:00 AM, [address] [place] [address], [address], [phone], Provider Name:Willard marcano, 11/18/2025 02:30:00 PM, [address] [place] [address], [place] [address], [place], [place], [phone], Progress Notes * Alda DICKSON ADOB: (39 yo F)Acc No.[id number]:11/16/2024 Progress Notes Patient:?BERNARDOAlda WALTERS Provider:?Willard Estevez MD :1985???Age:39 Y???Sex:Female D ate:11/16/2024 Address:[address] [place] [address] [facility], [id number] Subjective: * Chief Complaints: * ???1. Annual visit. 2. CBACK URINE. * HPI: ???Depression Screening:?PHQ-9?Little interest or pleasure in doing things?Not at all,?Feeling down, depressed, or hopeless?Not at all,?Trouble falling or staying asleep, or sleeping too much?Not at all,?Feeling tired or having little energy?Not at all,?Poor appetite or overeating?Not at all,?Feeling bad about yourself or that you are a failure, or have let yourself or your family down?Not at all,?Trouble concentrating on things, such as reading the newspaper or watching television?Not at all,?Moving or speaking so slowly that other people could have noticed; or the opposite, being so fidgety or restless that you have been moving around a lot more than usual?Not at all,?Thoughts that you would be better off or of hurting yourself in some way?Not at all,?Total Score?0.?Interpretation and Intervention?Depression Screening Findings?Negative,?Follow-Up for Depression?: review of PHQ-9 found negative result, no follow-up needed.?Communication Needs:?Communication Needs?Does the patient have a hearing impairment?No,?Does the patient have a vision impairment??No,?Does the patient have a cognition impairment??No.?SDOH Questions:?SDOH Questions?In the past year have you been worried about losing housing??No,?In the past year have you or any family members you live with been unable to get any of the following when it was really needed? Check all that apply:?None.?Symptom(s):? patient is a 39 yo female here for annual visit with review of recent l labs and follow up of chronic issues. * ROS:?General/Constitutional:?Patient denies?fatigue, headache.?Change in appetite?denies.?Chills?denies.?Fever?denies.?Ophthalmologic:?Blurred vision?denies.?Discharge?denies.?Pain?denies.?ENT:?Patient denies?decreased sense of smell, any loss of taste, sore throat.?Decreased hearing?denies.?Sore throat?denies.?Swollen glands?denies.?Endocrine:?Cold intolerance?denies.?Excessive thirst?denies.?Heat intolerance?denies.?Weight loss?denies.?Respiratory:?Cough?denies.?Shortness of breath at rest?denies.?Shortness of breath with exertion?denies.?Wheezing?denies.?Cardiovascular:?Chest pain at rest?denies.?Chest pain with exertion?denies.?Irregular heartbeat?denies.?Shortness of breath?denies.?Gastrointestinal:?Abdominal pain?denies.?Change in bowel habits?denies.?Diarrhea?denies.?Nausea?denies.?Rectal bleeding?denies.?Vomiting?denies .?Genitourinary:?Blood in urine?denies.?Difficulty urinating?denies.?Frequent urination?denies.?Urinary incontinence?Denies.?Musculoskeletal:?Patient denies?muscle aches.?Painful joints?denies.?Weakness?denies.?Peripheral Vascular:?Patient denies?red and blue toes.?Skin:?Dry skin?denies.?Itching?denies.?Denies?Mole(s),? changes in moles, new moles or any lesions of concern.?Denies?Photosensitivity.?Rash?denies.?Neurologic:?Dizziness?denies.?Fainting?denies.?Headache?denies.? * Medical History:?Medical His tory Verified. * Family History:?Father: stew bruner 68 yrs.?Mother: alive 66 yrs, diagnosed with Hypertension.?1 brother(s) . 1 daughter(s) . .? Father- Healthy Mother- healthy, Denies mental health/substance abuse family history. * Social History:?Tobacco Use:?Tobacco Use/Smoking?Patient is a?nonsmoker,?Additional Findings: Tobacco Non-User?Current non-smoker, currently using no form of tobacco.?Drugs/Alcohol:?Alcohol Screen?Did you have a drink containing alcohol in the past year??Yes,?How often did you have a drink containing alcohol in the past year??Monthly or less (1 point),?How many drinks did you have on a typical day when you were drinking in the past year??1 or 2 drinks (0 point),?How often did you have 6 or more drinks on one occasion in the past year??Never (0 point),?Points?1,?Interpretation?Negative.?Miscellaneous:?Caffeine: no, frequency:. Children: yes. Community involvements: no. Exercise: yes, walks the dog QD. Home smoke detector use: yes. Housing: owning. Living with: spouse. Occupation: weeks/months/years, unemployed. Pets: cats: dogs:1 dog. Travel outside of the [place]: no. * Medications:?Taking Sertrali ne HCl 25 MG Tablet TAKE ONE TABLET BY MOUTH EVERY DAY Orally Once a day , Not-Taking/PRN Doxycycline Hyclate 100 MG Capsule 1 capsule Orally Twice a day , Medication List reviewed and reconciled with the patient * Allergies:?Erythromycin: Hiv es. Objective: * Vitals:?Ht: 64, Wt: 112, BMI :19.22, BP:114/62, Wt-k.8. weight is down 2 pounds since 07-01-23. * ???Past Orders: ???Lab:Complete Blood Count Auto Diff (Order Date - 10/29/2024) (Collection Date & Time - 10/29/2024 07:45 AM) ? Value Reference Range ?White Blood Count 4.9 4. 8-10.8 - X10*3/uL ?Red Blood Count 4.32 4.20 -5.50 - X10*6/uL ?Hemoglobin 12.7 12.0-16.0 - g/dl ?Hematocrit 39.1 37.0-47.0 - % ?Mean Corpuscular Volume 90.5 80.0-98.0 - fL ?Mean Corpuscular Hemoglobin 29.4 27.0-33.0 - pg ?Mean Corpuscular HGB Conc 32.5 31.0-35.0 - g/dl ?Red Cell Distribution Width 13.8 11.0-16.0 - % ?Platelet Count 376 160-4 00 - X10*3/uL ?Mean Platelet Volume 10.4 9.4-12.3 - fL ?Neutrophils Percent Auto 41.5 L 45-73 - % ?Imm Gran Pct Auto 0.2 0. 0-0.4 - % ?Lymphocytes Percent Auto 39.3 20-40 - % ?Monocytes Percent Auto 11.5 H 2-11 - % ?Eosinophils Percent Auto 6.3 H 0-4 - % ?Basophils Percent Auto 1.2 0-2 - % ?NRBC Pct Auto 0.0 0.0-0. 2 - /100WBC ?Neutrophils Absolute Auto 2.1 2.0-8.3 - x10*3/uL ?Imm Gran Abs Auto 0.01 0. 00-0.03 - X10*3/uL ?Lymphocytes Absolute Auto 1.9 1.2-4.9 - X10*3/uL ?Monocytes Absolute Auto 0.6 0.1-1.2 - X10*3/uL ?Eosinophils Absolute Auto 0.3 0.0-0.4 - X10*3/uL ?Basophils Absolute Auto 0.1 0.0-0.2 - X10*3/uL ?NRBC Abs Auto 0.000 0.0-0. 012 - X10*3/uL ???Lab:Com[facility]. P [facility] Fast (Order Date - 10/29/2024) (Collection Date & Time - 10/29/2024 07:45 AM) ? Value Reference Range ?Sodium 141 135-145 - mmo l/L ?Bilirubin Total 0.6 0.0- 1.0 - mg/dL ?Aspartate Amino Transferase 17 5-31 - U/L ?Alanine Aminotransferase 14 0-31 - U/L ?Total Protein 7.3 6.5-8. 0 - g/dL ?Albumin Level 4.3 3.5-5. 0 - g/dL ?Alkaline Phosphatase 53 39-117 - U/L ?Potassium 4.1 3.3-5.1 - mmol/L ?Chloride 108 96-108 - mm ol/L ?Carbon Dioxide 26 22-29 - mmol/L ?Anion Gap 11 L 12-20 - ?Blood Urea Nitrogen 10 9-16 - mg/dL ?Creatinine 0.78 0.5-1.4 - mg/dL ?Estimated Glomerular Filt Rate > 60 - ?Glucose Fasting 86 60-9 9 - mg/dL ?Calcium 9.4 8.4-10.2 - m g/dL ???Lab:Lipid Panel (Order Da te - 10/29/2024) (Collection Date & Time - 10/29/2024 07:45 AM) ? Value Reference Range ?Triglycerides 97 <150 - mg/dL ?Cholesterol 211 H <200 - m g/dL ?LDL Cholesterol Calculated 120 H <100 - mg/dL ?HDL Cholesterol 72 >40 - mg/dL * Examination: ???General Examination: ?GENERAL APPEARANCE:?well developed, well nourished, in no acute distress.?HEAD:?normocephalic, atraumatic.?EYES:?pupils equal, round, reactive to light and accommodation, sclera non-icteric.?EARS:?normal.?ORAL CAVITY:?mucosa moist.?THROAT:?clear.?NECK/THYROID:?neck supple, full range of motion, no cervical lymphadenopathy, no bruits.?SKIN:?warm and dry, no suspicious lesions.?HEART:?regular rate and rhythm, S1, S2 normal, no murmurs.?LUNGS:?clear to auscultation bilaterally.?BREASTS:?No mass, no lump.?ABDOMEN:?soft, nontender, nondistended, bowel sounds present, normal, no organomegaly , no masses palpable.?RECTAL EXAM:?done by body trimmer upholsterer.?FEMALE GENITOURINARY:?done by body trimmer upholsterer.?EXTREMITIES:?no clubbing, cyanosis, or edema.?NEUROLOGIC:?nonfocal, motor strength normal upper and lower extremities, sensory exam intact.? Assessment: * Assessment: 1.?Annual physical exam - Z0 0.00 (Primary)???2.?Anxiety - F41.9???3.?Microscopic hematuria - R31.29???4.?Depression screening - Z13.31??? Plan: * Treatment: 2.?Anxiety? Notes: doing well., will cpntinue current regiment?? 3.?Microscopic hematuria?LAB: Urinalysis and Microscopic Notes: was having her period, will continue to monitor?? 4.?Depression screening? Notes: negative screen?? * Follow Up:?1 Year * * The named appointment provid er may or may not be the originator of this progress note, and it is not deemed complete until electronically signed by the appointment provider. Sign off status: Pending * Provider:?Willard Estevez MD Date:?0 11/16/2024 Generated for Mateusz laughlin/Lurdes/Hectorsmitting on:?11/18/2024 04:00 PM EST History and Physical Notes * HPI (History of Present Illness) Category Sub-Category Detail Notes Category Not es Symptom(s) patient is a 39 yo female here for annual visit with review of recent l labs and follow up of chronic issues. Depression Screening PHQ-9 Little inte rest or pleasure in doing things: Not at all Feeling down, depressed, or hopeless: No t at all Trouble falling or staying asleep, or sl eeping too much: Not at all Feeling tired or having little energy: N ot at all Poor appetite or overeating: Not at all Feeling bad about yourself o r that you are a failure, or have let yourself or your family down: Not at all Trouble concentrating on thi ngs, such as reading the newspaper or watching television: Not at all Moving or speaking so slowly that other people could have noticed; or the opposite, being so fidgety or restless that you have been moving around a lot more than usual: Not at all Thoughts that you would be b mary off or of hurting yourself in some way: Not at all Total Score: 0 Interpretation and Intervention Depression Tyrone ayala Findings: Negative Follow-Up for Depression: : review of PH Q-9 found negative result, no follow-up needed SDOH Questions SDOH Questions In the past year have you been worried about losing housing?: No In the past year have you or any family members you live with been unable to get any of the following when it was really needed? Check all that apply:: None Communication Needs Communication Needs Does the patient have a hearing impairment: No Does the patient have a vision impairmen t?: No Does the patient have a cognition impair ment?: No Examination Category Sub-Category Detail Notes Category Not es General Examination GENERAL APPEARANCE: well dev eloped, well nourished, in no acute distress HEAD: normocephalic, atrau matic EYES: pupils equal, round, reactive to light and accommodation, sclera non-icteric EARS: normal THROAT: clear NECK/THYROID: neck supple, full ra nge of motion, no cervical lymphadenopathy, no bruits HEART: regular rate and rhy thm, S1, S2 normal, no murmurs LUNGS: clear to auscultatio n bilaterally ABDOMEN: soft, nontender, non distended, bowel sounds present, normal, no organomegaly , no masses palpable NEUROLOGIC: nonfocal, motor stre ngth normal upper and lower extremities, sensory exam intact SKIN: warm and dry, no malaika picious lesions EXTREMITIES: no clubbing, cyanosi s, or edema BREASTS: No mass, no lump RECTAL EXAM: done by body trimmer upholsterer FEMALE GENITOURINARY: done by body trimmer upholsterer ORAL CAVITY: mucosa moist
== END 2024-11-18 12:08 | disposition home or self-care (01) ==
LOC: HO.LNP 12:07
PROVIDERS: Visit Provider Internal Medicine
DX: R31.9 Hematuria, unspecified (principal)
CPT/HCPCS: 81001